=== PATIENT | male | born 1970 | race Caucasian/White ===

== ENCOUNTER → 2019-11-12 | Outpatient (CLI) | payer BC ==
[2019-11-12 09:04] VITALS: BP 109/64
[2019-11-12 09:17] VITALS: BP 175/84
--- NOTE | 2019-11-12 13:52 | STRESS TEST ---
DATE OF SERVICE: 11/12/2019 EXERCISE MYOVIEW STRESS TEST REPORT REFERRING PHYSICIAN: Dr. Todd Mak. Baseline heart rate is 80, baseline blood pressure 140/90. Baseline EKG is sinus rhythm with no ischemic changes. In summary, the patient was injected with 10.15 mCi of technetium-99 Myoview and the resting images were obtained. Then, the patient started exercising with a baseline heart rate, blood pressure and EKG mentioned above. The patient was able to exercise for a total of 8 minutes 25 seconds on a standard Billy protocol. With peak exercise level, heart rate was 149 and blood pressure 188/101. EKG was showing minimal nondiagnostic changes. The resting and stress images were reviewed and compared in the short axis, horizontal long axis and vertical long axis views. Review of the images showed diaphragmatic attenuation with typical male pattern. No significant ischemia or infarction was seen. SSS is 2, SDS 2, TID value 0.96. On the gated images, the left ventricle appeared to be normal size with normal contractility. Calculated ejection fraction is 68%. CONCLUSION: 1. Fair exercise tolerance, a total of 8 minutes 25 seconds on a standard Billy protocol, total of 10.1 METS achieving 87% of maximum expected heart rate. 2. Appropriate heart rate response to exercise with baseline hypertension and hypertensive response to exercise, peak blood pressure of 188/101, returned to baseline during recovery. 3. Diaphragmatic attenuation with typical male pattern with no significant ischemia or infarction on SPECT images. 4. Normal left ventricular size with normal contractility. Calculated ejection fraction is 68%. Job ID: [id number] DocumentID: [id number] Dictated Date: 11/12/2019 11:01:39 Social Insurance Administrator Date: 11/12/2019 13:51:39 Dictated By: YASH GALICIA MD
== END ==
LOC: CARD 07:31
PROVIDERS: ATTEND Internal Medicine Cardiovascular Disease
DX: E78.2 Mixed hyperlipidemia (principal); I10 Essential (primary) hypertension; R00.2 Palpitations; E66.9 Obesity, unspecified
CPT/HCPCS: 78452; 93017

== ENCOUNTER → 2019-11-13 | Outpatient (CLI) | payer BC ==
[~2019-11-13] VITALS: Ht 172 cm; Wt 103.0 kg
[~2019-11-13] MED LIST: CATHETER FLUSH 10 ML SYR IV PRN
== END ==
LOC: CARD 14:00
PROVIDERS: ATTEND Internal Medicine Cardiovascular Disease
DX: I07.1 Rheumatic tricuspid insufficiency (principal); E78.2 Mixed hyperlipidemia; I10 Essential (primary) hypertension; E66.9 Obesity, unspecified
CPT/HCPCS: 93306

== ENCOUNTER → 2020-01-24 | Outpatient (CLI) | payer BC | LOC: LABNPT 06:57 | PROVIDERS: ATTEND Internal Medicine Cardiovascular Disease | DX: Z01.818 Encounter for other preprocedural examination (principal); Z53.9 Procedure and treatment not carried out, unspecified reason ==

== ENCOUNTER 2021-06-08 12:44 | Emergency (ER) | payer BC ==
[~2021-06-08] VITALS: Ht 172.7 cm; Wt 102.1 kg
--- OUTSIDE RECORDS SUMMARY | 2021-06-08 12:49 | XMS REPORT ---
Author Juan R Milner Organization [facility] Address [address] [place], [place] [id number] Care Team Providers Care Oracle Applications Analyst Name Role Phone Britt Renae PCP Todd Mak PreferredProvider Allergies and Adverse Reactions Name Reaction Notes No known allergies Plan of Treatment Not available. Medications Active Name Start Date Estimated Completion Date SIG Co mments Crestor 5 mg oral tablet take 1 tablet (5 mg) by oral route once daily Name Start Date Expiration Date SIG Comments allopurinol 300 mg oral tablet 04/09/2020 04/04/2021 t cristi 1 tablet (300 mg) by oral route once daily for 90 days Problem List Not available. Vital Signs Date Time BP-Sys(mm[Hg] BP-Abby(mm[Hg]) HR(bpm) RR(rpm) Temp WT HT HC BMI BSA BMI Percentile O2 Sat(%) 06/08/2021 8:30:00 AM 90 mm[Hg] 50 mm[Hg] 110 {beats}/min 101 F 04/09/2020 9:04:00 AM 130 mm[Hg] 100 mm[Hg] 89 {beats}/min 18 rpm 98.2 F 218 lbs 68 in 33.15 kg/m2 2.18 m2 99 % Social History Name Description Comments Tobacco Never smoker History of Procedures Date Ordered Description Order Status 12/06/2019 12:00 AM COLLECTION VENOUS BLOOD VENIPUNCTURE Rev iewed 04/09/2020 12:00 AM Decadron 8mg Injection Reviewed 04/09/2020 12:00 AM Depo-Medrol 80mg Injection Reviewed 04/09/2020 12:00 AM THER/PROPH/DIAG INJ SC/IM Reviewed 04/09/2020 12:00 AM Toradol 60 Mg Injection Reviewed Results Summary Not available. History Of Immunizations Not available. History of Past Illness Name Date of Onset Comments Encounter for laboratory test Dec 06 2019 8:43AM Hyperlipidemia Dec 06 2019 8:43AM Palpitation Dec 06 2019 8:43AM Obesity Dec 06 2019 8:43AM Gout Apr 09 2020 9:12AM HTN (hypertension) Apr 09 2020 9:12AM COVID-19 Jun 08 2021 9:35AM Dyspnea Jun 08 2021 9:35AM Coughing Jun 08 2021 9:35AM Diarrhea Jun 08 2021 9:35AM Weakness Jun 08 2021 9:35AM COVID-19 Jun 08 2021 9:39AM Cough Jun 08 2021 9:39AM Headache Jun 08 2021 9:39AM Payers Insurance Name Company Name Plan Name Plan Number Policy Number Frank cy Group Number Start Date [id number] N/ A Cigna Cigna [id number] N/A History of Encounters Visit Date Visit Type Provider 06/08/2021 Office visit Britt Renae RING SORTER 06/03/2021 Office visit Sadia TAO RN 06/03/2021 Office visit Sadia TAO RN 04/09/2020 Office visit Yashira Albert RING SORTER 12/06/2019 Laboratory Yashira Albert RING SORTER 04/19/2016 Laboratory Diane Olmos MD
--- OUTSIDE RECORDS SUMMARY | 2021-06-08 12:49 | XMS REPORT ---
Author Juan R Milner Organization [facility] Address [address] [place], [place] [id number] Care Team Providers Care Rn Infusion Name Role Phone Britt Renae PCP Todd [...] 2021 9:35AM Weakness Jun 08 2021 9:35AM Payers Insurance Name Company Name Plan Name Plan Number Policy Number Frank cy Group Number Start Date BCBS [facility] [id number] N/ A Cigna Cigna [id number] N/A History of Encounters Visit Date Visit Type Provider 06/08/2021 Office visit Britt Renae SAFETY INVESTIGATOR/CAUSE ANALYST 06/03/2021 Office visit Sadia TAO RN 06/03/2021 Office visit Sadia TAO RN 04/09/2020 Office visit Yashira Albert SAFETY INVESTIGATOR/CAUSE ANALYST 12/06/2019 Laboratory Yashira Albert SAFETY INVESTIGATOR/CAUSE ANALYST 04/19/2016 Laboratory Diane Olmos MD
[2021-06-08 13:12] LABS: BASOPHILS % (AUTO) 0 % (0-10); EOSINOPHILS % (AUTO) 0 % (0-10); HEMATOCRIT 45 % (40-54); HEMOGLOBIN 16.3 g/dL (13.3-17.7); LYMPHOCYTES # (AUTO) 0.9 10^3/uL (1.0-4.0); LYMPHOCYTES % (AUTO) 13 % (12-44); MEAN CORPUSCULAR HEMOGLOBIN 31 pg (25-34); MEAN CORPUSCULAR HGB CONC 36 g/dL (32-36); MEAN CORPUSCULAR VOLUME 88 fL (80-99); MEAN PLATELET VOLUME 9.1 fL (9.0-12.2); MONOCYTES # (AUTO) 0.4 10^3/uL (0.0-1.0); MONOCYTES % (AUTO) 5 % (0-12); NEUTROPHILS # (AUTO) 5.6 10^3/uL (1.8-7.8); NEUTROPHILS % (AUTO) 81 % (42-75); PLATELET COUNT 295 10^3/uL (130-400); WHITE BLOOD COUNT 6.9 10^3/uL (4.3-11.0)
--- NOTE | 2021-06-08 13:13 | ED General ---
General Stated Complaint: COVID + Source of Information: Patient Exam Limitations: No Limitations History of Present Illness Date Seen by Provider: Jun 08, 2021 Time Seen by Provider: 13:11 Initial Comments 50-year-old otherwise healthy male unvaccinated against Covid presents to ER with shortness of breath and lethargy. He is on day 9 of Covid symptoms. Timing/Duration: 1-2 Days Severity: Moderate Associated Systoms: Cough Allergies and Home Medications Allergies Coded Allergies: No Allergy Information Available (Unverified , 11/12/19) Patient Home Medication List Home Medication List Reviewed: Yes Dexamethasone (Decadron) 6 Mg Tablet, 6 MG PO DAILY Prescribed by: KRISTI NEVAREZ on 06/08/21 1443 Doxycycline Hyclate (Doxycycline Hyclate) 100 Mg Tablet, 100 MG PO BID Prescribed by: KRISTI NEVAREZ on 06/08/21 1443 Review of Systems Review of Systems Constitutional: see HPI, chills, fever EENTM: see HPI Respiratory: see HPI, cough, short of breath Cardiovascular: no symptoms reported Genitourinary: no symptoms reported Musculoskeletal: no symptoms reported Skin: no symptoms reported Psychiatric/Neurological: No Symptoms Reported Hematologic/Lymphatic: No Symptoms Reported Immunological/Allergic: no symptoms reported Physical Exam Vital Signs Vital Signs - First Documented 06/08/21 12:56 Temp 37.8 Pulse 100 Resp 22 B/P (MAP) 141/91 (108) Pulse Ox 92 O2 Delivery Room Air Capillary Refill : Height, Weight, BMI Height: '" Weight: lbs. oz. kg; 34.81 BMI Method: General Appearance: No Apparent Distress, WD/WN Eyes: Bilateral Eye Normal Inspection, Bilateral Eye PERRL, Bilateral Eye EOMI Neck: Full Range of Motion, Normal Inspection Respiratory: Normal Breath Sounds, No Accessory Muscle Use, No Respiratory Distress, Other (HR 91% room air at rest. ) Cardiovascular: Normal Peripheral Pulses, Tachycardia Gastrointestinal: Normal Bowel Sounds, Non Tender, Soft Extremity: Normal Capillary Refill, Normal Inspection Neurologic/Psychiatric: Alert, Oriented x3 Skin: Normal Color, Warm/Dry Progress/Results/Core Measures Suspected Sepsis SIRS Temperature: Pulse: Respiratory Rate: Laboratory Tests 06/08/21 13:05: White Blood Count 6.9 Blood Pressure / Mean: Laboratory Tests 06/08/21 13:05: Creatinine 1.23, Platelet Count 295, Total Bilirubin 0.9 Results/Orders Lab Results Laboratory Tests Test 06/08/21 13:05 Range/Units White Blood Count 6.9 4.3-11.0 10^3/uL Red Blood Count 5.19 4.30-5.52 10^6/uL Hemoglobin 16.3 13.3-17.7 g/dL Hematocrit 45 40-54 % Mean Corpuscular Volume 88 80-99 fL Mean Corpuscular Hemoglobin 31 25-34 pg Mean Corpuscular Hemoglobin Concent 36 32-36 g/dL Red Cell Distribution Width 11.9 10.0-14.5 % Platelet Count 295 130-400 10^3/uL Mean Platelet Volume 9.1 9.0-12.2 fL Immature Granulocyte % (Auto) 1 % Neutrophils (%) (Auto) 81 H 42-75 % Lymphocytes (%) (Auto) 13 12-44 % Monocytes (%) (Auto) 5 0-12 % Eosinophils (%) (Auto) 0 0-10 % Basophils (%) (Auto) 0 0-10 % Neutrophils # (Auto) 5.6 1.8-7.8 10^3/uL Lymphocytes # (Auto) 0.9 L 1.0-4.0 10^3/uL Monocytes # (Auto) 0.4 0.0-1.0 10^3/uL Eosinophils # (Auto) 0.0 0.0-0.3 10^3/uL Basophils # (Auto) 0.0 0.0-0.1 10^3/uL Immature Granulocyte # (Auto) 0.1 0.0-0.1 10^3/uL D-Dimer 1.06 H 0.00-0.49 UG/ML Sodium Level 132 L 135-145 MMOL/L Potassium Level 3.4 L 3.6-5.0 MMOL/L Chloride Level 98 98-107 MMOL/L Carbon Dioxide Level 21 21-32 MMOL/L Anion Gap 13 5-14 MMOL/L Blood Urea Nitrogen 14 7-18 MG/DL Creatinine 1.23 0.60-1.30 MG/DL Estimat Glomerular Filtration Rate 62 BUN/Creatinine Ratio 11 Glucose Level 144 H 70-105 MG/DL Calcium Level 8.9 8.5-10.1 MG/DL Corrected Calcium 8.8 8.5-10.1 MG/DL Total Bilirubin 0.9 0.1-1.0 MG/DL Aspartate Amino Transf (AST/SGOT) 102 H 5-34 U/L Alanine Aminotransferase (ALT/SGPT) 95 H 0-55 U/L Alkaline Phosphatase 201 H 40-136 U/L C-Reactive Protein High Sensitivity 7.78 H 0.00-0.50 MG/DL Total Protein 7.4 6.4-8.2 GM/DL Albumin 4.1 3.2-4.5 GM/DL Procalcitonin 0.26 H <0.10 NG/ML My Orders Orders - KRISTI NEVAREZ APRN Hs C Reactive Protein (06/08/21 13:07) Comprehensive Metabolic Panel (06/08/21 13:07) Cbc With Automated Diff (06/08/21 13:07) Fibrin Degradation Products (06/08/21 13:07) Ed Iv/Invasive Line Start (06/08/21 13:07) Procalcitonin (Pct) (06/08/21 13:07) Ct Angio Chest W (06/08/21 13:07) Iohexol Injection (Omnipaque 350 Mg/Ml 1 (06/08/21 13:30) Received Contrast (Hold Metformin- Contr (06/08/21 13:30) Sodium Chloride Flush (Catheter Flush Sy (06/08/21 13:30) Ns (Ivpb) (Sodium Chloride 0.9% Ivpb Bag (06/08/21 13:30) Bamlanivimab (Non Form) (Bamlanivimab (N (06/08/21 15:00) Epinephrine 1 Mg Injection (Adrenalin I (06/08/21 15:00) Diphenhydramine Injection (Benadryl Inje (06/08/21 15:00) Ondansetron Injection (Zofran Injectio (06/08/21 15:00) Acetaminophen Tablet (Tylenol Tablet) (06/08/21 15:00) Medications Given in ED Current Medications Medications Dose Ordered Sig/Chan Route Start Time Stop Time Status Last Admin Dose Admin Bamlanivimab 700 mg/Etesevimab 1400 mg/Sodium Chloride 160 ml @ 310 mls/hr ONCE ONCE IV 06/08/21 15:00 06/08/21 15:30 DC 06/08/21 15:36 310 MLS/HR Iohexol 100 ml ONCE ONCE IV 06/08/21 13:30 06/08/21 13:31 DC 06/08/21 14:09 88 ML Sodium Chloride 10 ml NEEDED PRN IV 06/08/21 13:30 06/08/21 14:09 10 ML Sodium Chloride 100 ml ONCE ONCE IV 06/08/21 13:30 06/08/21 13:31 DC 06/08/21 14:09 80 ML Vital Signs/I&O 06/08/21 06/08/21 12:56 15:35 Temp 37.8 38.2 Pulse 100 100 Resp 22 20 B/P (MAP) 141/91 (108) 134/95 Pulse Ox 92 91 O2 Delivery Room Air Room Air Capillary Refill : Departure Communication (Admissions) Family Conversation 1440-oxygen 94% room air heart rate down to 95. Discussed with him receiving the monoclonal antibody infusion. Discussed with him that this is emergency use authorization under FDA and alternatives to treatment as well as risks. He would like to proceed with getting this infusion. Since he is on day 9 I will go ahead and get this done while he is in the ER. Because of his elevated procalcitonin I will go him put him on some antibiotics. 1539-infusion is going now, oxygen saturations dropped to 88% on room air. Will initiate supplemental oxygen. NAME: ANNA CANSECO [facility] REC#: [id number] PT STATUS: REG ER : 1970 PHYSICIAN: KRISTI NEVAREZ APRN ADMIT DATE: 06/08/21/ER Draft Date of Exam:06/08/21 CT ANGIO CHEST W PROCEDURE: CT angiography of the chest with contrast. TECHNIQUE: Multiple contiguous axial images were obtained through the chest after uneventful bolus administration of intravenous contrast. 3D reconstructed CTA MIP acquisitions were also performed. Auto Exposure Controls were utilized during the CT exam to meet ALARA standards for radiation dose reduction. INDICATION: COVID-19 positive and shortness of air. COMPARISON: No prior studies are available for comparison. FINDINGS: Evaluation of the pulmonary arterial system is without evidence of thromboembolism. No definite filling defects are seen within central, lobar or segmental branches. Thoracic aorta is normal in caliber. There is no dissection. No pericardial or pleural fluid is identified. No axillary, hilar or mediastinal lymphadenopathy is identified. There are groundglass peripheral infiltrates in bilateral upper lobes, greatest in the right upper lobe. There are also some groundglass infiltrates in bilateral lower lobes. Features are consistent with COVID-19 pneumonia. Upper abdomen is unremarkable. IMPRESSION: 1. No evidence of pulmonary embolism or thoracic aortic dissection. 2. Bilateral upper and lower lobe groundglass pulmonary infiltrates consistent with COVID-19 pneumonia. Dictated on workstation # [id number] Dict: 06/08/21 1418 Trans: 06/08/21 1432 [id number] Interpreted by: LESLEY MULLIGAN MD Electronically signed by: Impression Primary Impression: COVID-19 Disposition: 01 HOME, SELF-CARE Condition: Stable Departure-Patient Inst. Decision time for Depature: 14:42 Referrals: ESTEBAN CASON DO (PCP) Primary Care Physician Patient Instructions: COVID-19 ED Add. Discharge Instructions: 1. Return to ER for any worsening. Tylenol and ibuprofen for pain control. Steroid and antibiotic as directed. Scripts Doxycycline Hyclate (Doxycycline Hyclate) 100 Mg Tablet 100 MG PO BID, #20 TAB 0 Refills Prov: KRISTI NEVAREZ JAW SKINNER 06/08/21 Dexamethasone (Decadron) 6 Mg Tablet 6 MG PO DAILY, #6 TAB Prov: KRISTI NEVAREZ JAW SKINNER 06/08/21 KRISTI NEVAREZ APRN Jun 08, 2021 13:13
[2021-06-08 13:28] LABS: ALBUMIN 4.1 GM/DL (3.2-4.5)
[2021-06-08 13:29] LABS: POTASSIUM 3.4 MMOL/L (3.6-5.0)
[2021-06-08 13:30] LABS: CALCIUM 8.9 MG/DL (8.5-10.1)
[2021-06-08] MEDS ORDERED: IOHEXOL 350 MG/ML 100 ML (OMNIPAQUE 350) VIAL IV ONE (13:30)
[2021-06-08] MEDS ORDERED: CATHETER FLUSH 10 ML SYR IV PRN (13:30)
[2021-06-08] MEDS ORDERED: NS 100 ML (IVPB) BAG IV ONE (13:30)
[2021-06-08] MEDS ORDERED: HOLD METFORMIN - RECEIVED CONTRAST 20 ML VIAL IV SCH (13:30)
[2021-06-08 13:31] LABS: TOTAL PROTEIN 7.4 GM/DL (6.4-8.2)
[2021-06-08 13:33] LABS: BILIRUBIN,TOTAL 0.9 MG/DL (0.1-1.0)
[2021-06-08 13:35] LABS: CREATININE SERUM 1.23 MG/DL (0.60-1.30)
--- NOTE | 2021-06-08 14:32 | Diagnostic Imaging Report ---
PROCEDURE: CT angiography of the chest with contrast. TECHNIQUE: Multiple contiguous axial images were obtained through the chest after uneventful bolus administration of intravenous contrast. 3D reconstructed CTA MIP acquisitions were also performed. Auto Exposure Controls were utilized during the CT exam to meet ALARA standards for radiation dose reduction. INDICATION: COVID-19 positive and shortness of air. COMPARISON: No prior studies are available for comparison. FINDINGS: Evaluation of the pulmonary arterial system is without evidence of thromboembolism. No definite filling defects are seen within central, lobar or segmental branches. Thoracic aorta is normal in caliber. There is no dissection. No pericardial or pleural fluid is identified. No axillary, hilar or mediastinal lymphadenopathy is identified. There are groundglass peripheral infiltrates in bilateral upper lobes, greatest in the right upper lobe. There are also some groundglass infiltrates in bilateral lower lobes. Features are consistent with COVID-19 pneumonia. Upper abdomen is unremarkable. IMPRESSION: 1. No evidence of pulmonary embolism or thoracic aortic dissection. 2. Bilateral upper and lower lobe groundglass pulmonary infiltrates consistent with COVID-19 pneumonia. Dictated by: Dictated on workstation # [id number]
[2021-06-08] MEDS ORDERED: DOXY100T2 PO (14:43)
[2021-06-08] MEDS ORDERED: DEXA6TAB6 PO (14:43)
[2021-06-08] MEDS ORDERED: ACETAMINOPHEN 500 MG TAB (TYLENOL) PO PRN (15:00)
[2021-06-08] MEDS ORDERED: diphenhydrAMINE 50 MG/ML INJ (BENADRYL) IV PRN (15:00)
[2021-06-08] MEDS ORDERED: ONDANSETRON 4 MG/2 ML (SDV) Z0FRAN IV PRN (15:00)
[2021-06-08] MEDS ORDERED: EPINEPHrine INJECTION 1 MG/ML AMP IM PRN (15:00)
[2021-06-08] MEDS ORDERED: BAMLANIVIMAB 700 MG/ETESEVIMAB 1,400 MG IN NS IV ONE ×3 (15:00)
[2021-06-08 17:13] VITALS: BP 132/92
== END 2021-06-08 17:13 | disposition home or self-care (01) ==
LOC: EDUNIT# 12:44 → ER 12:45
DX: U07.1 COVID-19 (principal); R00.0 Tachycardia, unspecified
CPT/HCPCS: 36415; 71275; 80053; 84145; 85025; 85379; 86141

== ENCOUNTER 2021-06-13 15:20 | Inpatient (IN) | payer BC ==
[~2021-06-13] VITALS: Ht 172 cm; Wt 92.7 kg
[2021-06-13] VITALS (8 sets, daily range): BP systolic 113–139; BP diastolic 79–94
[~2021-06-13 15:20] MED LIST changes: -CATHETER FLUSH 10 ML SYR IV PRN; +DEXA6TAB6 PO; +DOXY100T2 PO
[2021-06-13] MEDS ORDERED: dexAMETHasone 6 MG TAB (DECADRON) PO STA (16:01)
[2021-06-13] MEDS ORDERED: LACTATED RINGERS 1,000 ML IV ONE ×2 (16:02→16:15)
[2021-06-13] MEDS ORDERED: ACETAMINOPHEN 500 MG TAB (TYLENOL) ONE (16:02)
[2021-06-13] MEDS ORDERED: dexAMETHasone 6 MG TAB (DECADRON) ONE (16:05)
--- NOTE | 2021-06-13 16:07 | ED General ---
General Chief Complaint: COVID19 Suspect/Confirmed Stated Complaint: COVID +/NOT EATING COUGH Source of Information: Patient Exam Limitations: No Limitations History of Present Illness Date Seen by Provider: Jun 13, 2021 Time Seen by Provider: 15:55 Initial Comments Patient known Covid positive arrives with increasing shortness of breath. He has had monoclonal antibody infusion. He did require oxygen after infusion and states that he is becoming more short of breath now. States he is not eating or drinking well feels dehydrated. Does have nausea but no vomiting or diarrhea. He is not vaccinated. Arrives with O2 sat in the mid 80s on oxygen at 2 L. Timing/Duration: 1 Week (10 days), Getting Worse Severity: Moderate, Severe Associated Systoms: Cough, Fever/Chills, Loss of Appetite, Malaise, Nausea/Vomiting, Shortness of Air, Weakness Allergies and Home Medications Allergies Coded Allergies: No Known Drug Allergies (Unverified , 06/13/21) Patient Home Medication List Home Medication List Reviewed: Yes Dexamethasone (Decadron) 6 Mg Tablet, 6 MG PO DAILY Prescribed by: KRISTI NEVAREZ on 06/08/21 1443 Doxycycline Hyclate (Doxycycline Hyclate) 100 Mg Tablet, 100 MG PO BID Prescribed by: KRISTI NEVAREZ on 06/08/21 1443 Review of Systems Review of Systems Constitutional: see HPI, chills, fever, malaise, weakness EENTM: nose congestion; No throat pain Respiratory: cough, short of breath Cardiovascular: No chest pain, No edema Gastrointestinal: No abdominal pain, No diarrhea; nausea Genitourinary: no symptoms reported Musculoskeletal: muscle pain, muscle weakness Skin: no symptoms reported All Other Systems Reviewed Negative Unless Noted: Yes Past Cdaomkj-Pmsksl-Vaxqca Hx Patient Social History Tobacco Use?: No Use of E-Cig and/or Vaping dev: No Substance use?: No Alcohol Use?: Yes Alcohol type: Beer Alcohol Frequency: Daily Immunizations Up To Date First/Initial COVID19 Vaccinat: NONE Second COVID19 Vaccination Yehuda: NONE Third COVID19 Vaccination Date: NONE COVID19 Vaccine Customer Solutions Supervisor: NONE Past Medical History Surgeries: Yes Orthopedic Respiratory: No Cardiac: No Neurological: No Genitourinary: No Gastrointestinal: No Musculoskeletal: Yes Gout Endocrine: No Family Medical History Reviewed Nursing Family Hx No Pertinent Family Hx Physical Exam-Suspected Sepsis Physical Exam Vital Signs Vital Signs - First Documented 06/13/21 06/13/21 06/13/21 15:48 15:55 16:11 Temp 38.7 Pulse 102 Resp 24 B/P (MAP) 139/88 (105) Pulse Ox 92 O2 Delivery OxyMask O2 Flow Rate 10.00 FiO2 100 Capillary Refill : Height, Weight, BMI Height: '" Weight: lbs. oz. kg; 34.00 BMI Method: General Appearance: WD/WN, Mild Distress (Respiratory) HEENT: PERRL/EOMI, Pharyngeal Erythema Neck: Full Range of Motion, Normal Inspection, Non Tender, Supple Respiratory: Crackles (Bilateral bases right greater than left), Respiratory Distress (Mild with hypoxia); No Wheezing Cardiovascular: No Murmur, Tachycardia Gastrointestinal: Non Tender, Soft Back: Normal Inspection, No CVA Tenderness, No Vertebral Tenderness Extremity: Normal Range of Motion, Non Tender Neurologic/Psychiatric: Alert, Oriented x3 Skin: normal color, warm/dry; No rash, No ulcerations Focused Exam Lactate Level 06/13/21 15:55: Lactic Acid Level 2.48*H Lactic Acid Level Laboratory Tests Test 06/13/21 15:55 Lactic Acid Level 2.48 MMOL/L (0.50-2.00) *H Progress/Results/Core Measures Suspected Sepsis SIRS Temperature: Pulse: Respiratory Rate: Laboratory Tests 06/13/21 15:55: White Blood Count 13.0H Blood Pressure / Mean: 06/13/21 15:55: Lactic Acid Level 2.48*H Laboratory Tests 06/13/21 15:55: Creatinine 1.07, Platelet Count 548H, Total Bilirubin 1.5H Results/Orders Lab Results Laboratory Tests Test 06/13/21 15:55 Range/Units White Blood Count 13.0 H 4.3-11.0 10^3/uL Red Blood Count 5.18 4.30-5.52 10^6/uL Hemoglobin 16.0 13.3-17.7 g/dL Hematocrit 45 40-54 % Mean Corpuscular Volume 87 80-99 fL Mean Corpuscular Hemoglobin 31 25-34 pg Mean Corpuscular Hemoglobin Concent 35 32-36 g/dL Red Cell Distribution Width 11.9 10.0-14.5 % Platelet Count 548 H 130-400 10^3/uL Mean Platelet Volume 9.1 9.0-12.2 fL Immature Granulocyte % (Auto) 5 % Neutrophils (%) (Auto) 85 H 42-75 % Lymphocytes (%) (Auto) 6 L 12-44 % Monocytes (%) (Auto) 2 0-12 % Eosinophils (%) (Auto) 1 0-10 % Basophils (%) (Auto) 1 0-10 % Neutrophils # (Auto) 11.0 H 1.8-7.8 10^3/uL Lymphocytes # (Auto) 0.8 L 1.0-4.0 10^3/uL Monocytes # (Auto) 0.3 0.0-1.0 10^3/uL Eosinophils # (Auto) 0.1 0.0-0.3 10^3/uL Basophils # (Auto) 0.1 0.0-0.1 10^3/uL Immature Granulocyte # (Auto) 0.7 H 0.0-0.1 10^3/uL Neutrophils % (Manual) 91 % Lymphocytes % (Manual) 4 % Monocytes % (Manual) 5 % Blood Morphology Comment NORMAL Sodium Level 134 L 135-145 MMOL/L Potassium Level 3.0 L 3.6-5.0 MMOL/L Chloride Level 99 98-107 MMOL/L Carbon Dioxide Level 23 21-32 MMOL/L Anion Gap 12 5-14 MMOL/L Blood Urea Nitrogen 14 7-18 MG/DL Creatinine 1.07 0.60-1.30 MG/DL Estimat Glomerular Filtration Rate 73 BUN/Creatinine Ratio 13 Glucose Level 142 H 70-105 MG/DL Lactic Acid Level 2.48 *H 0.50-2.00 MMOL/L Calcium Level 9.1 8.5-10.1 MG/DL Corrected Calcium 9.4 8.5-10.1 MG/DL Total Bilirubin 1.5 H 0.1-1.0 MG/DL Aspartate Amino Transf (AST/SGOT) 47 H 5-34 U/L Alanine Aminotransferase (ALT/SGPT) 59 H 0-55 U/L Alkaline Phosphatase 167 H 40-136 U/L Total Protein 7.2 6.4-8.2 GM/DL Albumin 3.6 3.2-4.5 GM/DL My Orders Orders - CHRISTIANNE HALEY MD Cbc With Automated Diff (06/13/21 16:01) Comprehensive Metabolic Panel (06/13/21 16:01) Blood Culture (06/13/21 16:01) Sputum Culture (06/13/21 16:01) Urinalysis (06/13/21 16:01) Urine Culture (06/13/21 16:01) Protime With Inr (06/13/21 16:01) Partial Thromboplastin Time (06/13/21 16:01) Chest 1 View, Ap/Pa Only (06/13/21 16:01) Acetaminophen Tablet (Tylenol Tablet) (06/13/21 16:15) Ed Iv/Invasive Line Start (06/13/21 16:01) Vital Signs Adult Sepsis Patie Q15M (06/13/21 16:01) O2 (06/13/21 16:01) Remove Rings In Anticipation O (06/13/21 16:01) Lactic Acid Analyzer (06/13/21 16:01) Lactated Ringers (Lr 1000 Ml Iv Solution (06/13/21 16:15) Monitor-Rhythm Ecg Trace Only (06/13/21 16:01) Fibrin Degradation Products (06/13/21 16:01) Acetaminophen Tablet/Caplet (Tylenol T (06/13/21 16:15) Covid-19 External Lab Results (06/13/21 16:01) Isolation Central Supply Req (06/13/21 16:01) Dexamethasone Tablet (Decadron Tablet) (06/13/21 16:01) Dexamethasone Injection (Decadron Inje (06/13/21 16:02) Acetaminophen Tablet (Tylenol Tablet) (06/13/21 16:02) Lactated Ringers (Lr 1000 Ml Iv Solution (06/13/21 16:02) Dexamethasone Tablet (Decadron Tablet) (06/13/21 16:05) Manual Differential (06/13/21 15:55) Procalcitonin (Pct) (06/13/21 16:18) Ed Admission (Communication) (06/13/21 16:53) Medications Given in ED Current Medications Medications Dose Ordered Sig/Chan Route Start Time Stop Time Status Last Admin Dose Admin Acetaminophen 1,000 mg ONCE PRN PO 06/13/21 16:15 06/13/21 16:17 DC 06/13/21 16:06 1,000 MG Lactated Ringer's 1,000 ml @ 0 mls/hr Q0M ONCE IV 06/13/21 16:15 06/13/21 16:16 DC 06/13/21 16:06 0 MLS/HR Vital Signs/I&O 06/13/21 06/13/21 06/13/21 06/13/21 15:48 15:55 16:06 16:11 Temp 38.7 38.7 Pulse 102 Resp 24 B/P (MAP) 139/88 (105) Pulse Ox 92 92 93 O2 Delivery OxyMask OxyMask Vapotherm O2 Flow Rate 10.00 10.00 40.00 FiO2 100 Capillary Refill : Progress Note : Progress Note Seen and evaluated. Sepsis protocol initiated. Patient is Covid positive from 06/03/2021 from [facility]. IV, LR 1 L bolus, Decadron 6 mg p.o. ordered. We went from high flow O2 via nasal cannula up to 10 L to oximask at 15 L to get O2 saturation in the low to mid 90s. Patient was switched to Vapotherm at FiO2 of 100% and 40 L flow. O2 saturations low to mid 90s with that states he feels more comfortable. Patient will require admission but we are waiting for labs and x-ray. Patient did get Tylenol 1 g p.o. for fever on arrival. 1648: Patient 100% on Vapotherm currently. I did discuss the case with Dr. Jo and she accepts patient for admission. I did discuss with him regarding Actemra I discussed risk and benefits and patient accepts medication administration. Patient findings are consistent with COVID-19 pneumonia and I believe this is viral related and does not have bacterial component currently. Patient has findings of sepsis but I believe this is all viral mediated and will be treated in the normal fashion for Covid. Diagnostic Imaging Diagonstic Imaging: Xray Plain Films/CT/US/NM/MRI: chest Comments [facility], [place] NAME: AJITHANNA Iglesias [facility] REC#: [id number] PT STATUS: REG ER : 1970 PHYSICIAN: CHRISTIANNE HALEY MD ADMIT DATE: 06/13/21/ER Signed Date of Exam:06/13/21 CHEST 1 VIEW, AP/PA ONLY Indication: Dyspnea, followup COVID pneumonia. Comparison: Chest CT 06/08/2021. Discussion: Single portable upright view of the chest was obtained. Significant pulmonary infiltrates are present bilaterally consistent with viral pneumonia. Elevated right hemidiaphragm. Normal heart size. No pleural fluid or pneumothorax. No osseous abnormality. Impression: 1. Severe pulmonary infiltrates. Dictated by: Dictated on workstation # [id number] Dict: 06/13/21 1634 Trans: 06/13/21 1643 [facility] [id number] Interpreted by: ANNAMARIE GARDNER MD Electronically signed by: ANNAMARIE GARDNER MD 06/13/21 1643 Departure Communication (Admissions) Time/Spoke to Admitting Phy: 16:48 Impression Primary Impression: Pneumonia due to COVID-19 virus Additional Impression: Hypoxia Disposition: ADMITTED INPATIENT Condition: Stable Admissions Decision to Admit Reason: Admit from ER (General) Decision to Admit/Date: Jun 13, 2021 Time/Decision to Admit Time: 16:48 Departure-Patient Inst. Referrals: ESTEBAN CASON DO (PCP/Family) Primary Care Physician CHRISTIANNE HALEY MD Jun 13, 2021 16:07
[2021-06-13 16:15] LABS: BASOPHILS # (AUTO) 0.1 10^3/uL (0.0-0.1); BASOPHILS % (AUTO) 1 % (0-10); EOSINOPHILS # (AUTO) 0.1 10^3/uL (0.0-0.3); EOSINOPHILS % (AUTO) 1 % (0-10); HEMATOCRIT 45 % (40-54); LYMPHOCYTES # (AUTO) 0.8 10^3/uL (1.0-4.0); LYMPHOCYTES % (AUTO) 6 % (12-44); MEAN CORPUSCULAR HEMOGLOBIN 31 pg (25-34); MEAN CORPUSCULAR HGB CONC 35 g/dL (32-36); MEAN CORPUSCULAR VOLUME 87 fL (80-99); MEAN PLATELET VOLUME 9.1 fL (9.0-12.2); MONOCYTES # (AUTO) 0.3 10^3/uL (0.0-1.0); MONOCYTES % (AUTO) 2 % (0-12); NEUTROPHILS % (AUTO) 85 % (42-75); PLATELET COUNT 548 10^3/uL (130-400)
[2021-06-13] MEDS ORDERED: ACETAMINOPHEN 325 MG TABLET PO ONE (16:15)
[2021-06-13] MEDS ORDERED: ACETAMINOPHEN 500 MG TAB (TYLENOL) PO PRN (16:15)
[2021-06-13 16:20] LABS: ALBUMIN 3.6 GM/DL (3.2-4.5)
[2021-06-13 16:21] LABS: CALCIUM 9.1 MG/DL (8.5-10.1)
[2021-06-13 16:22] LABS: TOTAL PROTEIN 7.2 GM/DL (6.4-8.2)
[2021-06-13 16:24] LABS: BILIRUBIN,TOTAL 1.5 MG/DL (0.1-1.0)
[2021-06-13 16:26] LABS: CREATININE SERUM 1.07 MG/DL (0.60-1.30)
--- NOTE | 2021-06-13 16:35 | Diagnostic Imaging Report ---
Indication: Dyspnea, followup COVID pneumonia. Comparison: Chest CT 06/08/2021. Discussion: Single portable upright view of the chest was obtained. Significant pulmonary infiltrates are present bilaterally consistent with viral pneumonia. Elevated right hemidiaphragm. Normal heart size. No pleural fluid or pneumothorax. No osseous abnormality. Impression: 1. Severe pulmonary infiltrates. Dictated by: Dictated on workstation # [id number]
[2021-06-13 16:37] LABS: LYMPHOCYTES % (MANUAL) 4 %; MONOCYTES % (MANUAL) 5 %; NEUTROPHILS % (MANUAL) 91 %; RBC MORPH NORMAL
--- NOTE | 2021-06-13 16:57 | History & Physical-Hospitalist ---
History of Present Illness HPI/Chief Complaint Chief complaint: Acute hypoxic respiratory failure History of present illness: This is a 50-year-old white male with no known medical history who presents to the ER 5 days after seen in the ER and given a monoclonal antibody infusion after diagnosis of COVID-19 pneumonia. He was found to be in worsening respiratory distress and hypoxemia meeting criteria for inpatient admission with Vapotherm and BiPAP and Actemra infusion. Minimal other details obtained due to hypoxic state when conversing. He is unvaccinated. Source: patient Exam Limitations: clinical condition Date Seen 06/13/21 Time Seen by a Provider: 18:40 Attending Physician Todd Sahin DO Referring Physician Date of Admission Home Medications & Allergies Home Medications Reviewed patient Home Medication Reconciliation performed by pharmacy medication reconciliations cephalometric technician and/or nursing. Patients Allergies have been reviewed. Allergies Allergies Coded Allergies No Known Drug Allergies (Fbmwdjquti45/18/21) Past Nieuqoz-Vakxxj-Xmtanb Hx Patient Social History Marrital Status: Employed/Student: employed Tobacco Use?: No Smoking Status: Former Smoker Use of E-Cig and/or Vaping dev: No Substance use?: No Alcohol Use?: Yes Alcohol type: Beer Additional alcohol type: 30 PACK/WEEK Alcohol Frequency: Daily Immunizations Up To Date First/Initial COVID19 Vaccinat: NONE Second COVID19 Vaccination Yehuda: NONE Current Status Advance Directives: No Communicates: Verbally Primary Language: Italian Preferred Spoken Language: Italian Past Medical History Surgeries: Orthopedic Gout Family Medical History Reviewed Nursing Family Hx No Pertinent Family Hx Review of Systems Constitutional: see HPI EENTM: no symptoms reported Respiratory: dyspnea on exertion, short of breath Cardiovascular: no symptoms reported Gastrointestinal: no symptoms reported Genitourinary: no symptoms reported Musculoskeletal: no symptoms reported Skin: no symptoms reported Psychiatric/Neurological: No Symptoms Reported All Other Systems Reviewed Negative Unless Noted: Yes Physical Exam Physical Exam Vital Signs Vital Signs - First Documented 06/13/21 06/13/21 06/13/21 15:48 15:55 16:11 Temp 38.7 Pulse 102 Resp 24 B/P (MAP) 139/88 (105) Pulse Ox 92 O2 Delivery OxyMask O2 Flow Rate 10.00 FiO2 100 Capillary Refill : Less Than 3 Seconds Height, Weight, BMI Height: '" Weight: lbs. oz. kg; 30.00 BMI Method: General Appearance: Anxious, Moderate Distress Eyes: Right Eye Normal Inspection, Right Eye PERRL HEENT: PERRL/EOMI, Normal ENT Inspection, Pharynx Normal, Moist Mucous M embranes Neck: Full Range of Motion, Normal Inspection, Non Tender Respiratory: Chest Non Tender, No Respiratory Distress, Accessory Muscle Use, Crackles, Wheezing Cardiovascular: Regular Rate, Rhythm, No Edema, No Gallop, No JVD, No Murmur, Normal Peripheral Pulses Gastrointestinal: Normal Bowel Sounds, No Organomegaly, No Pulsatile Mass, Non Tender, Soft Back: Normal Inspection, No CVA Tenderness, No Vertebral Tenderness Extremity: Normal Capillary Refill, Normal Inspection, Normal Range of Motion, Non Tender, No Calf Tenderness, No Pedal Edema Neurologic/Psychiatric: Alert, Oriented x3, No Motor/Sensory Deficits, Normal Mood/Affect Skin: Normal Color, Warm/Dry Lymphatic: No Adenopathy Results Results/Procedures Labs Laboratory Tests 06/13/21 15:55 06/14/21 05:24 Patient resulted labs reviewed. Assessment/Plan Admission Diagnosis Assessment: Acute hypoxic respiratory failure COVID-19 pneumonia status post antibiotic patient 5 days ago in ER Plan: Vapotherm BiPAP Covid protocol meds eICU consult Admission Status: Inpatient Order (span 2 midnights) Reason for Inpatient Admission: Respiratory failure Diagnosis/Problems Diagnosis/Problems (1) COVID-19 Status: Acute (2) Hypoxia Status: Acute (3) Pneumonia due to COVID-19 virus Status: Acute CHAYITO MEJIA DO Jun 13, 2021 16:57
[2021-06-13 17:02] LABS: INR 1.2 (0.8-1.4); PROTHROMBIN TIME PATIENT 15.2 SEC (12.2-14.7)
--- NOTE | 2021-06-13 17:52 | Tele-ICU Consult ---
Progress Note 50 y/o male admitted with know Covid He is unvaccinated Has progressive hypoxemia Previously received monocolonal antibodies. Now given Actemra and decadron PLAN: admitto ICU for hypoxemic resp failure 2 to covid PNA Focused Exam Lactate Level 06/13/21 15:55: Lactic Acid Level 2.48*H Height, Weight, BMI Height: '" Weight: lbs. oz. kg; 30.00 BMI Method: Lactic Acid Level Laboratory Tests Test 06/13/21 15:55 Lactic Acid Level 2.48 MMOL/L (0.50-2.00) *H Laboratory Tests 06/13/21 15:55 Labs Labs Laboratory Tests 06/13/21 15:55: White Blood Count 13.0H, Red Blood Count 5.18, Hemoglobin 16.0, Hematocrit 45, Mean Corpuscular Volume 87, Mean Corpuscular Hemoglobin 31, Mean Corpuscular Hemoglobin Concent 35, Red Cell Distribution Width 11.9, Platelet Count 548H, Mean Platelet Volume 9.1, Immature Granulocyte % (Auto) 5, Neutrophils (%) (Auto) 85H, Lymphocytes (%) (Auto) 6L, Monocytes (%) (Auto) 2, Eosinophils (%) (Auto) 1, Basophils (%) (Auto) 1, Neutrophils # (Auto) 11.0H, Lymphocytes # (Auto) 0.8L, Monocytes # (Auto) 0.3, Eosinophils # (Auto) 0.1, Basophils # (Auto) 0.1, Immature Granulocyte # (Auto) 0.7H, Neutrophils % (Manual) 91, Lymphocytes % (Manual) 4, Monocytes % (Manual) 5, Blood Morphology Comment NORMAL, Prothrombin Time 15.2H, INR Comment 1.2, Activated Partial Thromboplast Time 31, Sodium Level 134L, Potassium Level 3.0L, Chloride Level 99, Carbon Dioxide Level 23, Anion Gap 12, Blood Urea Nitrogen 14, Creatinine 1.07, Estimat Glomerular Filtration Rate 73, BUN/Creatinine Ratio 13, Glucose Level 142H, Lactic Acid Level 2.48*H, Calcium Level 9.1, Corrected Calcium 9.4, Total Bilirubin 1.5H, Aspartate Amino Transf (AST/SGOT) 47H, Alanine Aminotransferase (ALT/SGPT) 59H, Alkaline Phosphatase 167H, Total Protein 7.2, Albumin 3.6, Procalcitonin 0.26H VITELLO,MONY M MD Jun 13, 2021 17:52
[2021-06-13 17:58] LABS: FIBRIN DEGRADATION PRODUCTS 1.59 UG/ML (0.00-0.49)
[2021-06-13] MEDS ORDERED: morphine INJ 10 MG/ML 1ML (SYR OR VIAL) IVP PRN (18:15)
[2021-06-13] MEDS ORDERED: ONDANSETRON 4 MG/5 ML ORAL SOLN (ZOFRAN) 5 ML PO PRN (18:15)
[2021-06-13] MEDS ORDERED: HYDROcodone/APAP 5 MG/325 MG (LORTAB) TAB PO PRN (18:15)
[2021-06-13] MEDS ORDERED: LOPERAMIDE 2 MG (IMODIUM) TABLET PO PRN (18:15)
[2021-06-13] MEDS ORDERED: [UNRECOGNIZED DRUG - REMARK] IV ONE (18:15)
[2021-06-13] MEDS ORDERED: guaiFENesin/CODEINE (ROBITUSSIN AC) 10ML UDC PO PRN (18:15)
[2021-06-13] MEDS ORDERED: ACETAMINOPHEN 325 MG TABLET PO PRN (18:15)
[2021-06-13] MEDS ORDERED: ONDANSETRON 4 MG/2 ML (SDV) Z0FRAN IV PRN (18:15)
[2021-06-13] MEDS ORDERED: diphenhydrAMINE 25 MG TAB (BENADRYL) PO PRN (18:15)
[2021-06-13] MEDS ORDERED: DOCUSATE SODIUM 100 MG (COLACE) CAP PO PRN (18:15)
[2021-06-13] MEDS ORDERED: ALPRAZolam 0.25 MG (XANAX) TAB PO PRN (18:15)
[2021-06-13] MEDS ORDERED: MELATONIN 3 MG TABLET PO PRN (18:15)
[2021-06-13] MEDS ORDERED: ENOXAPARIN 40 MG/0.4 ML (LOVENOX) SYR ONE (18:40)
[2021-06-13] MEDS: ENOXAPARIN 40 MG/0.4 ML (LOVENOX) SYR SC SCH (18:52)
[2021-06-13] MEDS: NS IV 1000 ML 1,000 ML IV SCH (18:53)
[2021-06-13] MEDS ORDERED: [UNRECOGNIZED DRUG - REMARK] IV NR (20:00)
[2021-06-13] MEDS ORDERED: RT-ALBUTEROL HFA 8.5 GM INHALER IH PRN (21:00)
[2021-06-13] MEDS: polyethylene glycoL POWDER 17 GM (MIRALAX) PACK PO SCH (21:11)
[2021-06-13] MEDS: ACYCLOVIR 400 MG TABLET (ZOVIRAX) PO SCH (21:11)
[2021-06-13] MEDS: guaiFENesin (MUCINEX) 600 MG TAB PO SCH (21:11)
[2021-06-13] MEDS: SENNA W/DOCUSATE (SENOKOT S) TABLET PO SCH (21:11)
[2021-06-14] VITALS (25 sets, daily range): BP systolic 108–168; BP diastolic 69–112
[2021-06-14 06:02] LABS: BASOPHILS # (AUTO) 0.1 10^3/uL (0.0-0.1); BASOPHILS % (AUTO) 1 % (0-10); EOSINOPHILS % (AUTO) 0 % (0-10); HEMATOCRIT 42 % (40-54); HEMOGLOBIN 14.8 g/dL (13.3-17.7); LYMPHOCYTES # (AUTO) 0.7 10^3/uL (1.0-4.0); LYMPHOCYTES % (AUTO) 7 % (12-44); MEAN CORPUSCULAR HEMOGLOBIN 31 pg (25-34); MEAN CORPUSCULAR HGB CONC 36 g/dL (32-36); MEAN CORPUSCULAR VOLUME 87 fL (80-99); MEAN PLATELET VOLUME 9.7 fL (9.0-12.2); MONOCYTES # (AUTO) 0.3 10^3/uL (0.0-1.0); MONOCYTES % (AUTO) 3 % (0-12); NEUTROPHILS # (AUTO) 8.6 10^3/uL (1.8-7.8); NEUTROPHILS % (AUTO) 84 % (42-75); PLATELET COUNT 489 10^3/uL (130-400); WHITE BLOOD COUNT 10.2 10^3/uL (4.3-11.0)
[2021-06-14 06:14] LABS: ALBUMIN 3.2 GM/DL (3.2-4.5); POTASSIUM 3.9 MMOL/L (3.6-5.0)
[2021-06-14 06:15] LABS: CALCIUM 8.8 MG/DL (8.5-10.1)
[2021-06-14 06:17] LABS: TOTAL PROTEIN 6.8 GM/DL (6.4-8.2)
[2021-06-14 06:20] LABS: CREATININE SERUM 0.78 MG/DL (0.60-1.30)
[2021-06-14 06:23] LABS: MAGNESIUM 2.9 MG/DL (1.6-2.4)
[2021-06-14] MEDS: ACYCLOVIR 400 MG TABLET (ZOVIRAX) PO SCH ×2 (07:48→19:40)
[2021-06-14] MEDS: SENNA W/DOCUSATE (SENOKOT S) TABLET PO SCH ×2 (07:49→19:48)
[2021-06-14] MEDS: polyethylene glycoL POWDER 17 GM (MIRALAX) PACK PO SCH ×2 (07:49→19:48)
[2021-06-14] MEDS: guaiFENesin (MUCINEX) 600 MG TAB PO SCH ×2 (07:49→19:41)
[2021-06-14] MEDS: RT-ALBUTEROL HFA 8.5 GM INHALER IH SCH ×5 (08:51→22:27)
--- NOTE | 2021-06-14 10:57 | Tele-ICU Progress Note ---
Subjective Date Seen by a Provider: Jun 14, 2021 Time Seen by a Provider: 10:57 Sepsis Event Evaluation Height, Weight, BMI Height: '" Weight: lbs. oz. kg; 31.33 BMI Method: Focused Exam Lactate Level 06/13/21 15:55: Lactic Acid Level 2.48*H 06/13/21 18:35: Lactic Acid Level 1.65 Exam Exam Patient acknowledged, consented, and participated in this virtual visit which was conducted using real time audio/video Vital Signs Date Time Temp Pulse Resp B/P (MAP) Pulse Ox O2 Delivery O2 Flow Rate FiO2 06/14/21 10:00 90 23 130/91 (104) 97 Vapotherm 40.00 100.00 06/14/21 09:00 56 27 124/98 (107) 96 Vapotherm 40.00 100.00 06/14/21 08:52 94 Vapotherm 40.00 100 06/14/21 08:01 92 Vapotherm 40.00 100 06/14/21 08:00 71 27 118/88 (98) 92 Vapotherm 40.00 100.00 06/14/21 07:00 80 26 108/78 (88) 96 Vapotherm 40.00 100.00 06/14/21 07:00 64 06/14/21 06:00 63 22 111/82 (92) 98 Vapotherm 40.00 100.00 06/14/21 06:00 94 Vapotherm 40.00 100 06/14/21 05:41 Vapotherm 40.00 100.00 06/14/21 05:00 61 22 110/76 (87) 92 Vapotherm 25.00 50.00 06/14/21 04:00 37.0 06/14/21 04:00 66 21 110/76 (87) 92 Vapotherm 25.00 50.00 06/14/21 03:00 67 22 110/75 (87) 93 Vapotherm 25.00 50.00 06/14/21 02:00 94 Vapotherm 25.00 50 06/14/21 02:00 56 19 113/82 (92) 94 Vapotherm 25.00 50.00 06/14/21 01:00 60 06/14/21 01:00 61 18 113/88 (96) 95 Vapotherm 25.00 50.00 06/14/21 00:31 Vapotherm 25.00 50.00 06/14/21 00:00 70 25 115/83 (94) 95 High Flow N/C 2.00 06/14/21 00:00 35.1 06/13/21 23:00 Vapotherm 40.00 100 06/13/21 23:00 67 22 113/80 (91) 91 High Flow N/C 2.00 06/13/21 22:00 72 21 120/79 (93) 95 High Flow N/C 2.00 06/13/21 22:00 94 Room Air 100 06/13/21 21:00 78 23 121/85 (97) 93 High Flow N/C 2.00 06/13/21 20:40 38.7 102 92 100 06/13/21 20:00 77 23 126/91 (103) 93 High Flow N/C 2.00 06/13/21 19:43 36.2 06/13/21 19:00 71 15 120/82 (95) 95 High Flow N/C 2.00 06/13/21 19:00 High Flow N/C 2.00 06/13/21 19:00 80 06/13/21 18:19 94 Room Air 100 06/13/21 18:16 36.5 80 22 124/94 (104) 94 Vapotherm 40.00 100.00 06/13/21 18:13 68 06/13/21 18:00 80 15 124/89 (101) 91 Vapotherm 40.00 100.00 06/13/21 17:35 74 22 127/95 99 Vapotherm 06/13/21 16:11 93 Vapotherm 40.00 100 06/13/21 16:06 38.7 06/13/21 15:55 38.7 102 24 139/88 (105) 92 OxyMask 10.00 06/13/21 15:48 92 OxyMask 10.00 I & O 06/14/21 07:00 Intake Total 750 ml Output Total 675 ml Balance 75 ml Height & Weight Height: '" Weight: lbs. oz. kg; 31.33 BMI Method: General Appearance: Anxious, Moderate Distress HEENT: PERRL/EOMI, Normal ENT Inspection, Pharynx Normal, Moist Mucous Membranes Neck: Full Range of Motion, Normal Inspection, Non Tender Respiratory: Chest Non Tender, No Respiratory Distress, Accessory Muscle Use, Crackles, Wheezing Cardiovascular: Regular Rate, Rhythm, No Edema, No Gallop, No JVD, No Murmur, Normal Peripheral Pulses Capillary Refill: Less Than 3 Seconds Extremity: Normal Capillary Refill, Normal Inspection, Normal Range of Motion, Non Tender, No Calf Tenderness, No Pedal Edema Neurologic/Psychiatric: Alert, Oriented x3, No Motor/Sensory Deficits, Normal Mood/Affect Skin: Normal Color, Warm/Dry Lymphatic: No Adenopathy Results Lab Laboratory Tests 06/13/21 15:55 06/14/21 05:24 Assessment/Plan Assessment/Plan (Tele-ICU Physician , Progress Note ) Available chart/ vitals / labs / Images reviewed Video assessment done using teleICU camera, rest of exam as per RN Discussed with RN , EXAM PER RN Events overnight : Afebrile FiO2 - I/O = pos Drips: Pressors: , hemodynamically stable Consultants: Hospital course: 06/13 - to ICU with cpovid PNA 06/14 - VT 40L 100% A/P AHRF / ARDS due to severe COVID19 -VT 40L 100% -prone position if able - conservative fluid strategy (aim for even or negative fluid balance HIGH RISK FOR INTUBATION CEXM-Mgisgkbbzbi-0/COVID-19 PNA ( DX , s/p moniclonal antivbody , unvaccinted --Remdesivir given severe dz and time frame no major clinical benefit ) --Dexamethasone --s/p [id number]/ 18 , ( Acyclovir for HSV/VZV prophylaxis after Tocilizumab- 30 days 400 po bid ) -Hypercoagulable state , DDIMER= 1.59 on -> lovenox ppx dose , follow D dimer Monitor for superimposed bact PNA -PCT equivoval , OFF abx - repeat 06/15 Hyperglycemia / Diabetes Mellitus - ISS , close f/up on steroids transaminitis likely due to COVID-19. Lines : periph (Central Line Necessity Reviewed) Jaramillo: OG: Nutrition: po Analgesia: Anxiety/ delirium VTE Prophylaxis: nichole 40 Stress Ulcer Prophylaxis: po Plans in collaboration with bedside consultants and IM MDs. Discussed with RN to reach out if any questions or concerns A total of 32 minutes of critical care time was devoted to this patient today, required to treat and/or prevent further deterioration of critical care condition ( as above) . DARIO ZAPATA MD Jun 14, 2021 10:57
[2021-06-14] MEDS: NS IV 1000 ML 1,000 ML IV SCH ×2 (10:59→11:19)
--- NOTE | 2021-06-14 12:18 | Progress Note - Hospitalist ---
Subjective HPI/CC On Admission Date Seen by Provider: Jun 14, 2021 Time Seen by Provider: 11:45 Chief complaint: Acute hypoxic respiratory failure History of present illness: This is a 50-year-old white male with no known medical history who presents to the ER 5 days after seen in the ER and given a monoclonal antibody infusion after diagnosis of COVID-19 pneumonia. He was found to be in worsening respiratory distress and hypoxemia meeting criteria for inpatient admission with Vapotherm and BiPAP and Actemra infusion. Minimal other details obtained due to hypoxic state when conversing. He is unvaccinated. Subjective/Events-last exam Patient about the same Maxed on Vapotherm Talked about BiPAP Updated Using incentive spirometer Told him to lie on his side and prone Check meds and labs Review of Systems General: Fatigue, Malaise Pulmonary: Dyspnea Focused Exam Lactate Level 06/13/21 15:55: Lactic Acid Level 2.48*H 06/13/21 18:35: Lactic Acid Level 1.65 Objective Exam Vital Signs Vital Signs Date Time Temp Pulse Resp B/P (MAP) Pulse Ox O2 Delivery O2 Flow Rate FiO2 06/15/21 04:21 Vapotherm 40.00 90 06/15/21 04:00 73 109/75 (86) 97 06/15/21 03:00 24 06/14/21 23:24 36.9 Capillary Refill : Less Than 3 Seconds General Appearance: WD/WN, Anxious, Chronically ill, Mild Distress Respiratory: No Accessory Muscle Use, No Respiratory Distress, Decreased Breath Sounds Cardiovascular: Regular Rate, Rhythm Neurologic/Psychiatric: Alert, Oriented x3 Results/Procedures Lab Patient resulted labs reviewed. Assessment/Plan Assessment and Plan Assess & Plan/Chief Complaint Assessment: Acute hypoxic respiratory failure COVID-19 pneumonia status post antibiotic patient 5 days ago in ER Plan: Vapotherm BiPAP Covid protocol meds eICU consult 06/14/2021: Supportive care Vapotherm BiPAP Updated Diagnosis/Problems Diagnosis/Problems (1) COVID-19 Status: Acute (2) Hypoxia Status: Acute (3) Pneumonia due to COVID-19 virus Status: Acute CHAYITO MEJIA DO Jun 14, 2021 12:18
[2021-06-14] MEDS: ENOXAPARIN 40 MG/0.4 ML (LOVENOX) SYR SC SCH (17:01)
[2021-06-15] VITALS (24 sets, daily range): BP systolic 95–155; BP diastolic 68–99
[2021-06-15] MEDS: RT-ALBUTEROL HFA 8.5 GM INHALER IH SCH ×6 (02:45→22:17)
[2021-06-15 05:34] LABS: BASOPHILS # (AUTO) 0.1 10^3/uL (0.0-0.1); BASOPHILS % (AUTO) 0 % (0-10); EOSINOPHILS # (AUTO) 0.1 10^3/uL (0.0-0.3); EOSINOPHILS % (AUTO) 1 % (0-10); HEMATOCRIT 36 % (40-54); HEMOGLOBIN 12.7 g/dL (13.3-17.7); LYMPHOCYTES # (AUTO) 0.7 10^3/uL (1.0-4.0); LYMPHOCYTES % (AUTO) 4 % (12-44); MEAN CORPUSCULAR HEMOGLOBIN 31 pg (25-34); MEAN CORPUSCULAR HGB CONC 35 g/dL (32-36); MEAN CORPUSCULAR VOLUME 88 fL (80-99); MEAN PLATELET VOLUME 9.8 fL (9.0-12.2); MONOCYTES # (AUTO) 0.7 10^3/uL (0.0-1.0); MONOCYTES % (AUTO) 4 % (0-12); NEUTROPHILS # (AUTO) 14.1 10^3/uL (1.8-7.8); NEUTROPHILS % (AUTO) 86 % (42-75); PLATELET COUNT 503 10^3/uL (130-400); WHITE BLOOD COUNT 16.5 10^3/uL (4.3-11.0)
[2021-06-15 05:53] LABS: ALBUMIN 2.9 GM/DL (3.2-4.5); POTASSIUM 3.5 MMOL/L (3.6-5.0)
[2021-06-15 05:54] LABS: CALCIUM 8.2 MG/DL (8.5-10.1)
[2021-06-15 05:55] LABS: TOTAL PROTEIN 5.8 GM/DL (6.4-8.2)
[2021-06-15 05:57] LABS: BILIRUBIN,TOTAL 0.5 MG/DL (0.1-1.0)
[2021-06-15 05:59] LABS: CREATININE SERUM 0.76 MG/DL (0.60-1.30)
[2021-06-15 06:01] LABS: MAGNESIUM 2.4 MG/DL (1.6-2.4)
[2021-06-15] MEDS: POTASSIUM CL 10MEQ/50ML IVPB 50 ML IV SCH (06:11)
--- NOTE | 2021-06-15 06:11 | Diagnostic Imaging Report ---
INDICATION: Covid patient, pneumonia. COMPARISON: 06/13/2021. FINDINGS: 5 lobe infiltrates are present having progressed in the interim. No effusion or pneumothorax. IMPRESSION: 5 lobe infiltrates mildly increased without pleural pathology. Dictated by: Dictated on workstation # [id number]
[2021-06-15] MEDS: KCL 20 MEQ TAB (K-DUR) PO SCH (06:12)
[2021-06-15] MEDS: MAGNESIUM 1 GM/100 ML IVPB 100 ML IV SCH (06:12)
[2021-06-15] MEDS: ACYCLOVIR 400 MG TABLET (ZOVIRAX) PO SCH ×2 (07:34→19:25)
[2021-06-15] MEDS: guaiFENesin (MUCINEX) 600 MG TAB PO SCH ×2 (07:34→19:25)
[2021-06-15] MEDS: SENNA W/DOCUSATE (SENOKOT S) TABLET PO SCH ×2 (07:35→20:39)
[2021-06-15] MEDS: polyethylene glycoL POWDER 17 GM (MIRALAX) PACK PO SCH ×2 (07:35→20:39)
[2021-06-15] MEDS ORDERED: KCL 20 MEQ TAB (K-DUR) PO NR (09:00)
[2021-06-15] MEDS ORDERED: DEXA6TAB PO (09:58)
[2021-06-15] MEDS ORDERED: DOXY100T2 PO (09:58)
[2021-06-15] MEDS ORDERED: ACET-2267 PO (09:58)
[2021-06-15] MEDS ORDERED: IBUP-2473 PO (09:58)
[2021-06-15] MEDS ORDERED: GUAI600T43 PO (09:58)
--- NOTE | 2021-06-15 11:53 | Tele-ICU Progress Note ---
Subjective Time Seen by a Provider: 11:53 Sepsis Event Evaluation Height, Weight, BMI Height: '" Weight: lbs. oz. kg; 31.33 BMI Method: Focused Exam Lactate Level 06/13/21 15:55: Lactic Acid Level 2.48*H 06/13/21 18:35: Lactic Acid Level 1.65 Exam Exam Patient acknowledged, consented, and participated in this virtual visit which was conducted using real time audio/video Vital Signs Date Time Temp Pulse Resp B/P (MAP) Pulse Ox O2 Delivery O2 Flow Rate FiO2 06/15/21 11:00 85 21 121/75 (90) 93 Vapotherm 30.00 70.00 06/15/21 10:56 30.00 70.00 06/15/21 10:41 97 Vapotherm 40.00 80 06/15/21 10:00 86 25 105/68 (80) 97 Vapotherm 40.00 85.00 06/15/21 09:00 78 32 119/77 (91) 94 Vapotherm 40.00 85.00 06/15/21 08:00 35.9 06/15/21 08:00 60 28 115/75 (89) 94 Vapotherm 40.00 85.00 06/15/21 07:42 40.00 85.00 06/15/21 07:37 Vapotherm 40.00 85 06/15/21 07:11 96 Vapotherm 40.00 90 06/15/21 07:00 60 21 117/86 (96) 96 Vapotherm 40.00 90.00 06/15/21 07:00 70 06/15/21 06:00 71 25 116/85 (96) 93 Vapotherm 40.00 90.00 06/15/21 05:00 61 22 117/85 (97) 99 Vapotherm 40.00 90.00 06/15/21 04:21 Vapotherm 40.00 90 06/15/21 04:00 36.6 06/15/21 04:00 73 109/75 (86) 97 Vapotherm 40.00 90.00 06/15/21 03:00 71 24 121/78 (92) 93 Vapotherm 40.00 90.00 06/15/21 02:45 94 Vapotherm 40.00 90 06/15/21 02:00 65 33 119/78 (93) 96 Vapotherm 40.00 90.00 06/15/21 01:27 60 118/96 (104) 95 Vapotherm 40.00 90.00 06/15/21 01:00 64 06/15/21 00:00 73 155/99 (117) 98 Vapotherm 40.00 90.00 06/14/21 23:24 36.9 06/14/21 23:17 Vapotherm 40.00 90 06/14/21 23:00 73 168/112 (132) 95 Vapotherm 40.00 90.00 06/14/21 22:27 97 Vapotherm 40.00 90 06/14/21 22:00 68 22 141/104 (117) 98 Vapotherm 40.00 90.00 06/14/21 21:00 76 24 127/84 (97) 96 Vapotherm 40.00 90.00 06/14/21 20:00 95 28 115/84 (96) 94 Vapotherm 40.00 90.00 06/14/21 19:47 Vapotherm 40.00 90 06/14/21 19:37 Vapotherm 40.00 90.00 06/14/21 19:00 102 06/14/21 19:00 36.0 92 24 120/81 (94) 95 Vapotherm 40.00 100.00 06/14/21 18:43 99 Vapotherm 40.00 100 06/14/21 18:00 90 22 127/85 (99) 100 Vapotherm 40.00 100.00 06/14/21 17:00 98 32 124/86 (99) 100 Vapotherm 40.00 100.00 06/14/21 16:00 94 Vapotherm 40.00 100 06/14/21 16:00 92 23 137/88 (104) 95 Vapotherm 40.00 100.00 06/14/21 15:52 36.2 06/14/21 15:10 92 Vapotherm 40.00 100 06/14/21 15:00 96 22 133/71 (91) 98 Vapotherm 40.00 100.00 06/14/21 14:00 90 24 116/69 (85) 97 Vapotherm 40.00 100.00 06/14/21 13:00 98 22 140/95 (110) 99 Vapotherm 40.00 100.00 06/14/21 12:44 85 06/14/21 12:00 91 22 137/93 (108) 98 Vapotherm 40.00 100.00 06/14/21 11:57 94 Vapotherm 40.00 100 I & O 06/15/21 07:00 Intake Total 1200 ml Output Total 1400 ml Balance -200 ml Height & Weight Height: '" Weight: lbs. oz. kg; 31.33 BMI Method: General Appearance: WD/WN, Anxious, Chronically ill, Mild Distress HEENT: PERRL/EOMI, Normal ENT Inspection, Pharynx Normal, Moist Mucous Membranes Neck: Full Range of Motion, Normal Inspection, Non Tender Respiratory: No Accessory Muscle Use, No Respiratory Distress, Decreased Breath Sounds Cardiovascular: Regular Rate, Rhythm Capillary Refill: Less Than 3 Seconds Extremity: Normal Capillary Refill, Normal Inspection, Normal Range of Motion, Non Tender, No Calf Tenderness, No Pedal Edema Neurologic/Psychiatric: Alert, Oriented x3 Skin: Normal Color, Warm/Dry Lymphatic: No Adenopathy Results Lab Laboratory Tests 06/13/21 15:55 06/14/21 05:24 06/15/21 05:09 Assessment/Plan Assessment/Plan (Tele-ICU Physician , Progress Note ) Available chart/ vitals / labs / Images reviewed Video assessment done using teleICU camera, rest of exam as per RN Discussed with RN , EXAM PER RN Events overnight : Afebrile FiO2 - I/O = even Drips: Pressors: , hemodynamically stable Consultants: Hospital course: 06/13 - to ICU with cpovid PNA 06/14 - VT 40L 100% A/P AHRF / ARDS due to severe COVID19 -VT 40L 100% -prone position if able - conservative fluid strategy (aim for even or negative fluid balance HIGH RISK FOR INTUBATION [id number]-6/COVID-19 PNA ( DX , s/p moniclonal antivbody , unvaccinted --Remdesivir ( given severe dz and time frame no major clinical benefit ) --Dexamethasone --s/p [id number]/ 18 , ( Acyclovir for HSV/VZV prophylaxis after Tocilizumab- 30 days 400 po bid ) -Hypercoagulable state , DDIMER= 1.59 on -> lovenox ppx dose , follow D dimer Monitor for superimposed bact PNA -PCT very low , OFF abx - repeat 06/15 Hyperglycemia / Diabetes Mellitus - ISS , close f/up on steroids transaminitis likely due to COVID-19. Lines : periph (Central Line Necessity Reviewed) Jaramillo: OG: Nutrition: po Analgesia: Anxiety/ delirium VTE Prophylaxis: nichole 40 Stress Ulcer Prophylaxis: po Plans in collaboration with bedside consultants and IM MDs. Discussed with RN to reach out if any questions or concerns A total of 32 minutes of critical care time was devoted to this patient today, required to treat and/or prevent further deterioration of critical care condition ( as above) . DARIO ZAPATA MD Jun 15, 2021 11:53
--- NOTE | 2021-06-15 13:52 | Progress Note - Hospitalist ---
Subjective HPI/CC On Admission Date Seen by Provider: Jun 15, 2021 Time Seen by Provider: 09:35 Chief complaint: Acute hypoxic respiratory failure History of present illness: This is a 50-year-old white male with no known medical history who presents to the ER 5 days after seen in the ER and given a monoclonal antibody infusion after diagnosis of COVID-19 pneumonia. He was found to be in worsening respiratory distress and hypoxemia meeting criteria for inpatient admission with Vapotherm and BiPAP and Actemra infusion. Minimal other details obtained due to hypoxic state when conversing. He is unvaccinated. Subjective/Events-last exam He is still short of breath. He still has a cough. He is not having fevers. His appetite is ok. Focused Exam Lactate Level 06/13/21 15:55: Lactic Acid Level 2.48*H 06/13/21 18:35: Lactic Acid Level 1.65 Objective Exam Vital Signs Vital Signs Date Time Temp Pulse Resp B/P (MAP) Pulse Ox O2 Delivery O2 Flow Rate FiO2 06/15/21 13:00 76 35 119/80 (93) 96 Vapotherm 30.00 70.00 06/15/21 12:30 36.3 06/15/21 12:00 70 Capillary Refill : Less Than 3 Seconds General Appearance: No Apparent Distress, Obese Respiratory: Lungs Clear, Normal Breath Sounds, No Respiratory Distress Cardiovascular: Regular Rate, Rhythm, No Edema, No Murmur Gastrointestinal: Normal Bowel Sounds, Non Tender, Soft Extremity: Normal Inspection, Non Tender, No Pedal Edema Neurologic/Psychiatric: Alert, Oriented x3, Other (irritable) Skin: Normal Color, Warm/Dry Results/Procedures Lab Laboratory Tests 06/15/21 05:09 Patient resulted labs reviewed. Imaging: Reviewed Imaging Report Assessment/Plan Assessment and Plan Assess & Plan/Chief Complaint Acute respiratory failure due to COVID-19 Decadron s/p Actemra Vapotherm requirements slightly improved TeleICU following Hypokalemia Monitor and replace as needed Obesity Clinically significant, no acute management needs DVT prophylaxis: Lovenox Lactic acidosis, resolved Critical Care Critically Ill Patient Diagnosis/Problems Diagnosis/Problems (1) Acute respiratory failure due to COVID-19 Status: Acute (2) Hypokalemia Status: Acute (3) Lactic acidosis Status: Resolved Resolution Date/Time: 06/15/21 @ 13:56 (4) Obesity Status: Chronic DIOGO,MORALES M MD Jun 15, 2021 13:52
[2021-06-15] MEDS: ENOXAPARIN 40 MG/0.4 ML (LOVENOX) SYR SC SCH (17:09)
[2021-06-15] MEDS: CALCIUM CARBONATE 500 MG (TUMS) TAB.CHEW PO PRN (23:46)
[2021-06-16] VITALS (14 sets, daily range): BP systolic 107–144; BP diastolic 71–129
[2021-06-16] MEDS: RT-ALBUTEROL HFA 8.5 GM INHALER IH SCH ×6 (02:53→21:36)
[2021-06-16 04:29] LABS: BASOPHILS % (AUTO) 0 % (0-10); EOSINOPHILS # (AUTO) 0.2 10^3/uL (0.0-0.3); EOSINOPHILS % (AUTO) 2 % (0-10); HEMATOCRIT 36 % (40-54); HEMOGLOBIN 12.7 g/dL (13.3-17.7); LYMPHOCYTES % (AUTO) 7 % (12-44); MEAN CORPUSCULAR HEMOGLOBIN 31 pg (25-34); MEAN CORPUSCULAR HGB CONC 35 g/dL (32-36); MEAN CORPUSCULAR VOLUME 89 fL (80-99); MEAN PLATELET VOLUME 9.5 fL (9.0-12.2); MONOCYTES # (AUTO) 0.7 10^3/uL (0.0-1.0); MONOCYTES % (AUTO) 5 % (0-12); NEUTROPHILS # (AUTO) 10.2 10^3/uL (1.8-7.8); NEUTROPHILS % (AUTO) 79 % (42-75); PLATELET COUNT 530 10^3/uL (130-400); WHITE BLOOD COUNT 12.9 10^3/uL (4.3-11.0)
[2021-06-16 04:47] LABS: ALBUMIN 2.8 GM/DL (3.2-4.5); POTASSIUM 3.4 MMOL/L (3.6-5.0)
[2021-06-16 04:48] LABS: CALCIUM 8.2 MG/DL (8.5-10.1)
[2021-06-16 04:49] LABS: TOTAL PROTEIN 5.5 GM/DL (6.4-8.2)
[2021-06-16 04:51] LABS: BILIRUBIN,TOTAL 0.4 MG/DL (0.1-1.0)
[2021-06-16 04:53] LABS: CREATININE SERUM 0.74 MG/DL (0.60-1.30)
[2021-06-16 04:56] LABS: MAGNESIUM 2.2 MG/DL (1.6-2.4)
[2021-06-16] MEDS: KCL 20 MEQ TAB (K-DUR) PO SCH (04:57)
[2021-06-16] MEDS: MAGNESIUM 1 GM/100 ML IVPB 100 ML IV SCH (04:57)
[2021-06-16] MEDS: POTASSIUM CL 10MEQ/50ML IVPB 50 ML IV SCH (04:57)
--- NOTE | 2021-06-16 06:56 | Diagnostic Imaging Report ---
INDICATION: Covid pneumonia COMPARISON: 06/15/2021 FINDINGS: Single view of the chest demonstrates unchanged bilateral pulmonary infiltrates. There is no pneumothorax or effusion. The heart size is stable. Osseous structures are age-appropriate. IMPRESSION: Unchanged bilateral pulmonary infiltrates Dictated by: Dictated on workstation # [id number]
[2021-06-16] MEDS: guaiFENesin (MUCINEX) 600 MG TAB PO SCH ×2 (08:32→21:14)
[2021-06-16] MEDS: SENNA W/DOCUSATE (SENOKOT S) TABLET PO SCH ×2 (08:33→21:12)
[2021-06-16] MEDS: ACYCLOVIR 400 MG TABLET (ZOVIRAX) PO SCH ×2 (08:33→21:14)
[2021-06-16] MEDS ORDERED: KCL 20 MEQ TAB (K-DUR) PO NR (09:00)
[2021-06-16] MEDS: polyethylene glycoL POWDER 17 GM (MIRALAX) PACK PO SCH ×2 (09:29→21:12)
--- NOTE | 2021-06-16 10:07 | Tele-ICU Progress Note ---
Subjective Date Seen by a Provider: Jun 16, 2021 Time Seen by a Provider: 10:07 Sepsis Event Evaluation Height, Weight, BMI Height: '" Weight: lbs. oz. kg; 31.33 BMI Method: Focused Exam Lactate Level 06/13/21 15:55: Lactic Acid Level 2.48*H 06/13/21 18:35: Lactic Acid Level 1.65 Exam Exam Patient acknowledged, consented, and participated in this virtual visit which was conducted using real time audio/video Vital Signs Date Time Temp Pulse Resp B/P (MAP) Pulse Ox O2 Delivery O2 Flow Rate FiO2 06/16/21 09:30 93 High Flow N/C 9.00 06/16/21 08:31 High Flow N/C 10.00 92 06/16/21 07:59 36.4 06/16/21 07:02 94 High Flow N/C 10.00 06/16/21 06:00 58 25 116/85 (95) 94 High Flow N/C 10.00 06/16/21 05:00 58 18 122/88 (104) 96 High Flow N/C 10.00 06/16/21 04:00 64 21 107/79 (90) 95 High Flow N/C 10.00 06/16/21 03:29 High Flow N/C 10.00 06/16/21 03:00 62 23 119/79 (93) 92 High Flow N/C 10.00 06/16/21 02:53 97 High Flow N/C 10.00 06/16/21 02:00 64 21 122/83 (94) 93 High Flow N/C 10.00 06/16/21 01:00 60 06/16/21 01:00 64 22 119/83 (96) 94 High Flow N/C 10.00 06/16/21 00:00 71 23 117/83 (94) 91 High Flow N/C 10.00 06/15/21 23:06 High Flow N/C 10.00 06/15/21 23:00 82 112/77 (90) 94 High Flow N/C 10.00 06/15/21 22:17 95 High Flow N/C 10.00 06/15/21 22:00 65 22 110/75 (86) 93 High Flow N/C 10.00 06/15/21 21:00 74 25 127/87 (104) 95 High Flow N/C 10.00 06/15/21 20:37 High Flow N/C 10.00 06/15/21 20:00 72 26 134/85 (99) 97 High Flow N/C 10.00 06/15/21 20:00 36.9 06/15/21 19:00 99 06/15/21 19:00 90 23 135/89 (104) 95 High Flow N/C 10.00 06/15/21 18:42 High Flow N/C 10.00 06/15/21 18:12 97 High Flow N/C 12.00 06/15/21 18:00 82 23 95/70 (78) 100 High Flow N/C 12.00 06/15/21 17:00 65 28 133/88 (103) 97 High Flow N/C 12.00 06/15/21 16:42 High Flow N/C 12.00 06/15/21 16:00 35.9 06/15/21 16:00 60 28 128/91 (103) 100 Vapotherm 30.00 70.00 06/15/21 15:32 Vapotherm 30.00 60 06/15/21 15:00 84 23 134/87 (102) 95 Vapotherm 30.00 70.00 06/15/21 14:26 95 Vapotherm 30.00 60 06/15/21 14:00 67 32 123/96 (107) 98 Vapotherm 30.00 70.00 06/15/21 13:00 76 35 119/80 (93) 96 Vapotherm 30.00 70.00 06/15/21 12:39 62 06/15/21 12:30 36.3 06/15/21 12:00 61 26 115/83 (94) 97 Vapotherm 30.00 70.00 06/15/21 12:00 Vapotherm 40.00 70 06/15/21 11:00 85 21 121/75 (90) 93 Vapotherm 30.00 70.00 06/15/21 10:56 30.00 70.00 06/15/21 10:41 97 Vapotherm 40.00 80 I & O 06/16/21 07:00 Intake Total 2170 ml Output Total 2825 ml Balance -655 ml Height & Weight Height: '" Weight: lbs. oz. kg; 31.33 BMI Method: General Appearance: No Apparent Distress, Obese HEENT: PERRL/EOMI, Normal ENT Inspection, Pharynx Normal, Moist Mucous Membranes Neck: Full Range of Motion, Normal Inspection, Non Tender Respiratory: Lungs Clear, Normal Breath Sounds, No Respiratory Distress Cardiovascular: Regular Rate, Rhythm, No Edema, No Murmur Capillary Refill: Less Than 3 Seconds Extremity: Normal Inspection, Non Tender, No Pedal Edema Neurologic/Psychiatric: Alert, Oriented x3, Other (irritable) Skin: Normal Color, Warm/Dry Lymphatic: No Adenopathy Results Lab Laboratory Tests 06/15/21 05:09 06/16/21 04:15 Assessment/Plan Assessment/Plan (Tele-ICU Physician , Progress Note ) Available chart/ vitals / labs / Images reviewed Video assessment done using teleICU camera, rest of exam as per RN Discussed with RN , EXAM PER RN Events overnight : Afebrile FiO2 - I/O = even Drips: Pressors: , hemodynamically stable Consultants: Hospital course: 06/13 - to ICU with cpovid PNA 06/14 - VT 40L 100% 06/16 - 9 L A/P AHRF / ARDS due to severe COVID19 -nc 9 L - IMPROVED -prone position if able [id number]-7/COVID-19 PNA ( DX , s/p moniclonal antivbody , unvaccinted --Dexamethasone --s/p [id number]/ 18 , ( Acyclovir for HSV/VZV prophylaxis after Tocilizumab- 30 days 400 po bid ) -Hypercoagulable state , DDIMER= 1.59 on -> lovenox ppx dose , follow D dimer Monitor for superimposed bact PNA -PCT very low , OFF abx - repeat 06/15 Hyperglycemia / Diabetes Mellitus - ISS , close f/up on steroids transaminitis likely due to COVID-19. Lines : periph (Central Line Necessity Reviewed) Jaramillo: OG: Nutrition: po Analgesia: Anxiety/ delirium VTE Prophylaxis: nichole 40 Stress Ulcer Prophylaxis: po Plans in collaboration with bedside consultants and IM MDs. Discussed with RN to reach out if any questions or concerns A total of 32 minutes of critical care time was devoted to this patient today, required to treat and/or prevent further deterioration of critical care condition ( as above) . DARIO ZAPATA MD Jun 16, 2021 10:07
--- NOTE | 2021-06-16 17:38 | Progress Note - Hospitalist ---
Subjective HPI/CC On Admission Date Seen by Provider: Jun 16, 2021 Time Seen by Provider: 09:45 Chief complaint: Acute hypoxic respiratory failure History of present illness: This is a 50-year-old white male with no known medical history who presents to the ER 5 days after seen in the ER and given a monoclonal antibody infusion after diagnosis of COVID-19 pneumonia. He was found to be in worsening respiratory distress and hypoxemia meeting criteria for inpatient admission with Vapotherm and BiPAP and Actemra infusion. Minimal other details obtained due to hypoxic state when conversing. He is unvaccinated. Subjective/Events-last exam He is feeling better. He is less short of breath. He denies pain. Focused Exam Lactate Level 06/13/21 18:35: Lactic Acid Level 1.65 Objective Exam Vital Signs Vital Signs Date Time Temp Pulse Resp B/P (MAP) Pulse Ox O2 Delivery O2 Flow Rate FiO2 06/16/21 15:55 36.8 75 20 142/83 (102) 94 High Flow N/C 8.00 06/16/21 08:31 92 Capillary Refill : Less Than 3 Seconds General Appearance: No Apparent Distress, Obese Respiratory: Lungs Clear, Normal Breath Sounds, No Respiratory Distress Cardiovascular: Regular Rate, Rhythm, No Edema, No Murmur Gastrointestinal: Normal Bowel Sounds, Non Tender, Soft Extremity: Normal Inspection, Non Tender, No Pedal Edema Neurologic/Psychiatric: Alert, Oriented x3, No Motor/Sensory Deficits, Normal Mood/Affect Skin: Normal Color, Warm/Dry Results/Procedures Lab Laboratory Tests 06/16/21 04:15 Patient resulted labs reviewed. Imaging: Reviewed Imaging Report Assessment/Plan Assessment and Plan Assess & Plan/Chief Complaint Acute respiratory failure due to COVID-19 Decadron s/p Actemra Off Vapotherm, now on high flow nasal cannula Transfer to [facility] floor Hypokalemia Monitor and replace as needed Obesity Clinically significant, no acute management needs DVT prophylaxis: Lovenox Lactic acidosis, resolved Diagnosis/Problems Diagnosis/Problems (1) Acute respiratory failure due to COVID-19 Status: Acute (2) Hypokalemia Status: Acute (3) Lactic acidosis Status: Resolved Resolution Date/Time: 06/15/21 @ 13:56 (4) Obesity Status: Chronic MORALES LIND MD Jun 16, 2021 17:38
[2021-06-16] MEDS: ENOXAPARIN 40 MG/0.4 ML (LOVENOX) SYR SC SCH (17:40)
[2021-06-16] MEDS: CALCIUM CARBONATE 500 MG (TUMS) TAB.CHEW PO PRN (21:17)
[2021-06-17] VITALS: BP 146/87
[2021-06-17] MEDS: RT-ALBUTEROL HFA 8.5 GM INHALER IH SCH ×5 (03:00→15:04)
[2021-06-17 04:05] VITALS: BP 136/89
[2021-06-17 05:57] LABS: BASOPHILS # (AUTO) 0.1 10^3/uL (0.0-0.1); BASOPHILS % (AUTO) 1 % (0-10); EOSINOPHILS # (AUTO) 0.3 10^3/uL (0.0-0.3); EOSINOPHILS % (AUTO) 2 % (0-10); HEMATOCRIT 40 % (40-54); HEMOGLOBIN 13.9 g/dL (13.3-17.7); LYMPHOCYTES # (AUTO) 1.4 10^3/uL (1.0-4.0); LYMPHOCYTES % (AUTO) 12 % (12-44); MEAN CORPUSCULAR HEMOGLOBIN 31 pg (25-34); MEAN CORPUSCULAR HGB CONC 35 g/dL (32-36); MEAN CORPUSCULAR VOLUME 90 fL (80-99); MEAN PLATELET VOLUME 9.5 fL (9.0-12.2); MONOCYTES # (AUTO) 0.8 10^3/uL (0.0-1.0); MONOCYTES % (AUTO) 7 % (0-12); NEUTROPHILS # (AUTO) 7.6 10^3/uL (1.8-7.8); NEUTROPHILS % (AUTO) 69 % (42-75); PLATELET COUNT 529 10^3/uL (130-400)
[2021-06-17 06:04] LABS: ALBUMIN 2.9 GM/DL (3.2-4.5); POTASSIUM 4.1 MMOL/L (3.6-5.0)
[2021-06-17 06:05] LABS: CALCIUM 8.3 MG/DL (8.5-10.1)
[2021-06-17 06:07] LABS: TOTAL PROTEIN 5.7 GM/DL (6.4-8.2)
[2021-06-17 06:08] LABS: BILIRUBIN,TOTAL 0.5 MG/DL (0.1-1.0)
[2021-06-17 06:10] LABS: CREATININE SERUM 0.8 MG/DL (0.60-1.30)
[2021-06-17 08:00] VITALS: BP 136/93
[2021-06-17] MEDS: SENNA W/DOCUSATE (SENOKOT S) TABLET PO SCH (09:03)
[2021-06-17] MEDS: polyethylene glycoL POWDER 17 GM (MIRALAX) PACK PO SCH (09:03)
[2021-06-17] MEDS: guaiFENesin (MUCINEX) 600 MG TAB PO SCH (09:30)
[2021-06-17] MEDS: ACYCLOVIR 400 MG TABLET (ZOVIRAX) PO SCH (09:30)
[2021-06-17 12:00] VITALS: BP 143/94
--- NOTE | 2021-06-17 12:10 | Discharge Summary ---
Discharge Summary Hospital Course Was the Problem List Reviewed?: Yes Problems/Dx: (1) Acute respiratory failure due to COVID-19 Status: Acute (2) Hypokalemia Status: Acute (3) Lactic acidosis Status: Resolved (4) Obesity Status: Chronic Hospital Course Date of Admission: Jun 13, 2021 at 16:54 Admission Diagnosis : Acute respiratory failure due to COVID-19 Family Physician/Provider: Todd Mak DO Date of Discharge: 06/17/21 Discharge Diagnosis: Acute respiratory failure due to COVID-19 Hospital Course: Juan R Cherry is a 51-year-old male who was admitted with acute respiratory failure due to COVID-19. He was treated with dexamethasone and Actemra. He was requiring high flow oxygen with Vapotherm in the ICU initially. His breathing and oxygen saturations improved. A respiratory therapy study revealed an oxygen requirement of 4 L with activity at the time of discharge. He was set up with home oxygen. He should follow-up with his primary care physician in a week or 2. He was discharged home in stable condition. Labs and Pending Lab Test: Laboratory Tests 06/17/21 05:20: White Blood Count 11.0, Red Blood Count 4.45, Hemoglobin 13.9, Hematocrit 40, Mean Corpuscular Volume 90, Mean Corpuscular Hemoglobin 31, Mean Corpuscular Hemoglobin Concent 35, Red Cell Distribution Width 12.6, Platelet Count 529H, Mean Platelet Volume 9.5, Immature Granulocyte % (Auto) 9, Neutrophils (%) (Auto) 69, Lymphocytes (%) (Auto) 12, Monocytes (%) (Auto) 7, Eosinophils (%) (Auto) 2, Basophils (%) (Auto) 1, Neutrophils # (Auto) 7.6, Lymphocytes # (Auto) 1.4, Monocytes # (Auto) 0.8, Eosinophils # (Auto) 0.3, Basophils # (Auto) 0.1, Immature Granulocyte # (Auto) 1.0H, Sodium Level 140, Potassium Level 4.1, Chloride Level 111H, Carbon Dioxide Level 20L, Anion Gap 9, Blood Urea Nitrogen 14, Creatinine 0.80, Estimat Glomerular Filtration Rate 102, BUN/Creatinine Ratio 18, Glucose Level 95, Calcium Level 8.3L, Corrected Calcium 9.2, Total Bilirubin 0.5, Aspartate Amino Transf (AST/SGOT) 28, Alanine Aminotransferase (ALT/SGPT) 55, Alkaline Phosphatase 119, Total Protein 5.7L, Albumin 2.9L Microbiology 06/13/21 Blood Culture - Preliminary, Resulted No growth Home Meds Active Reported Ibuprofen 200 Mg Tablet 400-600 Mg PO Q8H PRN Tylenol Extra Strength (Acetaminophen) 500 Mg Tablet 1,000 Mg PO Q8H PRN Mucinex (Guaifenesin) 600 Mg Tab.er.12h 600 Mg PO Q12H PRN Doxycycline Hyclate 100 Mg Tablet 100 Mg PO BID FILLED 06-08-2021 #20/10 DAY SUPPLY Dexamethasone 6 Mg Tablet 6 Mg PO DAILY FILLED 06-08-2021 #6/6 DAY SUPPLY Assessment/Pt Instructions Take medications as prescribed. You are being set up with home oxygen with activity. Follow up with your PCP. Return with worsening shortness of breath, chest pain, or if you feel like you are getting worse. Discharge Planning: <30 minutes discharge planning Discharge Instructions Discharge Diet: No Restrictions Activity as Tolerated: Yes Discharge Physical Examination Vital Signs Vital Signs Date Time Temp Pulse Resp B/P (MAP) Pulse Ox O2 Delivery O2 Flow Rate FiO2 06/17/21 11:32 91 High Flow N/C 4.00 06/17/21 08:00 36.3 66 20 136/93 (107) 06/16/21 08:31 92 General Appearance: No Apparent Distress, WD/WN Respiratory: Lungs Clear, Normal Breath Sounds, No Respiratory Distress Cardiovascular: Regular Rate, Rhythm, No Edema, No Murmur Gastrointestinal: Normal Bowel Sounds, Non Tender, Soft Extremity: Normal Inspection, Non Tender, No Pedal Edema Skin: Normal Color, Warm/Dry Neurologic/Psychiatric: Alert, Oriented x3, No Motor/Sensory Deficits, Normal Mood/Affect Allergies: Coded Allergies: No Known Drug Allergies (Unverified , 06/13/21) Discharge Summary Date of Admission Jun 13, 2021 at 16:54 Date of Discharge Discharge Date: Jun 17, 2021 Discharge Time: 12:08 Admission Diagnosis Acute respiratory failure due to COVID-19 Discharge Diagnosis Acute respiratory failure due to COVID-19 (1) Acute respiratory failure due to COVID-19 Status: Acute (2) Hypokalemia Status: Acute (3) Lactic acidosis Status: Resolved (4) Obesity Status: Chronic MORALES LIND MD Jun 17, 2021 12:10
== END 2021-06-17 15:45 | disposition home or self-care (01) | DRG 177 ==
LOC: EDUNIT# 15:20 → ER 15:22 → ICU 16:54 → 4TH 06-16 13:01
PROVIDERS: ADMIT Internal Medicine; ATTEND Internal Medicine
PROC: XW033E5 Introduction of Remdesivir Anti-infective into Peripheral Vein, Percutaneous Approach, New Technology Group 5 (ICD-10-PCS; principal; 2021-06-13)
DX: U07.1 COVID-19 (principal); J12.82 Pneumonia due to coronavirus disease 2019; J96.01 Acute respiratory failure with hypoxia; J15.9 Unspecified bacterial pneumonia; E87.2 Acidosis; M10.9 Gout, unspecified; Z87.891 Personal history of nicotine dependence; E87.6 Hypokalemia; E66.9 Obesity, unspecified; E11.65 Type 2 diabetes mellitus with hyperglycemia; Z68.31 Body mass index [BMI] 31.0-31.9, adult
CPT/HCPCS: 36415; 71045; 80053; 83605; 83735; 84145; 85007; 85025; 85027; 85379; 85610; 85730; 87040; 93041; 94640; 94760; 94761